=== PATIENT | female | born 1990 | race Caucasian/White ===

== ENCOUNTER 2018-03-18 21:27 | Inpatient (IN) | payer SELFPAY ==
[2018-03-18 22:02] LABS: #Basophils 0.1 thou/uL (0.0-0.2); #Eosinphils 0.4 thou/uL (0.0-0.7); #Lymphocytes 2.9 thou/uL (1.20-3.40); #Monocytes 1.4 thou/uL (0.11-0.59); %Basophils 0.6 % (0.0-1.0); %Eosinophils 2.3 % (0.0-10.0); %Lymphocytes 14.3 % (21.0-51.0); %Monocytes 7.1 % (0.0-10.0); %Neutrophils 75.7 % (42.0-75.0); Hemoglobin 13.5 g/dL (12.0-16.0); Mean Corpuscular HGB CONC 33.8 g/dL (32.0-36.0); Mean Corpuscular Hemoglobin 33.1 pg (27.0-31.0); Mean Platelet Volume 8.3 fL (7.4-10.4); Platelet Count 315 thou/uL (130-400); RBC Distribution Width 11.6 % (11.5-14.5); Red Blood Cell (RBC) Count 4.09 mill/uL (4.20-5.40); White Blood Cell (WBC) Count 19.8 thou/uL (4.8-10.8)
[2018-03-18 22:08] LABS: Bilirubin Small (Negative); Blood, Urine Negative (Negative); Clarity CLEAR (Clear); Glucose, Urine (Dipstick) Negative (Negative); Leukocyte Negative (Negative); Nitrite Negative (Negative); Protein, Urine (Dipstick) Trace mg/dL (Neg-Trace); Specific Gravity, Urine 1.021 (1.002-1.036)
[2018-03-18 22:17] LABS: BHCG - Serum Negative (NEGATIVE); Pregs Control Background? CLEAR/WHITE (CLR/WHITE); Pregs Control Bar Appear? YES (CONTROL BAR)
--- NOTE | 2018-03-18 22:18 | RAD ---
PORTABLE AP CHEST X-RAY 03/18/18 HISTORY: Combative, agitation, altered mental status. FINDINGS: Endotracheal tube is noted in place with tip overlying the irma. The endotracheal tube should be sl ightly withdrawn. Nasogastric tube is noted in place which is coiled overlying the left upper quadran t. Tip overlying the region of the gastric cardia/fundus of the stomach. The cardiac silhouette and p ulmonary vasculature are within normal limits. The lungs are clear. Osseous structures are intact. IMPRESSION: 1. Endotracheal tube noted in place with tip overlying the irma. The endotracheal tube should be slightly withdrawn. 2. Nasogastric tube in place. 3. No acute cardiopulmonary process. POS: [facility]
[2018-03-18 22:21] LABS: ALT (SGPT) 19 U/L (8-55); AST (SGOT) 27 U/L (5-34); Acetaminophen Less than 6.0 mcg/mL (10.0-30.0); Albumin 4.2 g/dL (3.5-5.0); Alcohol Less than 10 mg/dL (Less than 10); Alkaline Phosphatase 90 U/L (40-150); Anion Gap 16 mmol/L (10-20); BUN (Urea Nitrogen) 9 mg/dL (7.0-18.7); Bilirubin, Total 0.6 mg/dL (0.2-1.2); CK (CPK) 467 U/L (29-168); Calc. Creatinine Clearance 0 mL/min (70-130); Carbon Dioxide 18 mmol/L (22-29); Chloride 111 mmol/L (98-107); Estimated GFR-MDRD 77; Globulin 2.9 g/dL (2.4-3.5); Glucose 96 mg/dL (70-105); Potassium 3.3 mmol/L (3.5-5.1); Protein, Total 7.1 g/dL (6.0-8.3); Salicylate Less than 8.0 mg/dL (15.0-30.0); Sodium 142 mmol/L (136-145)
[2018-03-18 22:21] LABS: Amphetamine Detected (NotDetected); Barbiturates Screen Not Detected (NotDetected); Benzodiazepine Screen Detected (NotDetected); Cocaine Metabolite Screen Not Detected (NotDetected); Medtox Reader # READER 1; Methadone Not Detected (NotDetected); Methamphetamine Detected (NotDetected); Opiate Screen Not Detected (NotDetected); Oxycodone Screen Not Detected (NotDetected); Phencyclidine (PCP) Not Detected (NotDetected); THC/Cannabinoid Screen Not Detected (NotDetected); Tricyclic Screen Not Detected (NotDetected)
[2018-03-18 22:22] LABS: Medtox Control Line Valid? VALID (VALID)
[2018-03-18 22:24] LABS: Troponin I Less than 0.010 ng/mL (< 0.028)
[2018-03-18 22:43] LABS: Thyroid Stimulating Hormone 0.6879 uIU/mL (0.35-4.94)
--- NOTE | 2018-03-18 22:49 | CT ---
CT BRAIN NONCONTRAST: 03/18/18 HISTORY: 27-year-old female with altered mental status, combative and agitated. FINDINGS: There is no midline shift or any other mass effect. There is no evidence of acute intracranial hemor rhage, large cortical infarct, obstructive hydrocephalus, or extraaxial fluid collection. The calvar ium is intact. There is total opacification of the entire nasal cavity and nasopharyngeal airway. The re is a small fluid level in the right maxillary sinus and a tiny one in the left maxillary sinus. Mi ld mucosal thickening of bilateral ethmoid air cells and sphenoid sinuses. No gross opacification of bilateral tympanomastoid cavities and frontal sinuses. IMPRESSION: 1. No acute intracranial findings. 2. Fluid filling the nasal cavity and nasopharyngeal airway. william [] POS: JASON
[2018-03-18 22:55] LABS: Actual Bicarbonate (HCO3a) 18.6 mEq/L (22-28); Analyzer IN Cardio ER; Base Excess (BEa) -4.9 mEq/L (-2.0 to +3.0); CO2 Tension 29.7 mmHg (35.0-45.0); Calcium, Ionized 1.13 mmol/L (1.12-1.30); Carboxyhemoglobin (COHb) 0.3 gm% (0.0-3.0); Hemoglobin (Hb) 12.4 g/dL (12.0-16.0); O2 Tension (PaO2) 207.8 mmHg (80.0-100.0); Potassium - ABG Lab 3.26 mmol/L (3.70-5.30); pH, Arterial 7.41 (7.35-7.45)
--- NOTE | 2018-03-18 22:55 | CT ---
CT CERVICAL SPINE NONCONTRAST: 03/18/18 HISTORY: 27-year-old female status post acute cervical trauma from fall. FINDINGS: Alignment is normal. The vertebral body heights are maintained. Disc spaces are maintained. There is no evidence of acute fracture. There is no evidence of high grade central spinal canal stenosis or hi gh grade neuroforaminal stenosis. There are no high grade degenerative facet changes. There is no p revertebral soft tissue swelling. Endotracheal tube travels through the lumen of the trachea and into the right main stem bronchus. The distal tip is not visualized on the lowest image slice. There is an NG tube within the esophagus. Th ere are patchy pulmonary densities in the bilateral upper lobes, nonspecific. IMPRESSION: 1. Status post intubation, with endotracheal tube within the right main stem bronchus. 2. Normal cervical spine. william[] POS: JASON
[2018-03-18 23:04] LABS: ALV-art Gradient 111.575 (0-20); Puncture Site RRAD
[2018-03-18] MEDS ORDERED: Ondansetron HCl/PF 4 MG/2 ML Vial IVP PRN (23:37)
[2018-03-18] MEDS ORDERED: Acetaminophen 650 MG Suppository PR PRN (23:37)
[2018-03-19] MEDS ORDERED: Midazolam HCl 5 mg/ml Vial ONE ×2 (00:24→00:58)
[2018-03-19] MEDS ORDERED: Ventilator Sedation Protocol 1 EACH FS SCH (00:38)
[2018-03-19] MEDS ORDERED: DISCONTINUE PREVIOUS NARCOTIC PAIN MEDICATIONS AND BENZODIAZEPINES FS SCH (00:46)
[2018-03-19] MEDS ORDERED: Fentanyl BOLUS 250 ML IVPB PRN (00:46)
[2018-03-19] MEDS ORDERED: Propofol BOLUS 1,000 MG/100 ML VIAL IV PRN (00:46)
[2018-03-19] MEDS ORDERED: fentaNYL Citrate/PF 2,000 MCG in Sodium Chloride 0.9% 60 ML IV SCH (00:46)
[2018-03-19] MEDS ORDERED: Morphine 2 MG/ML SYRINGE SLOW IVP PRN (00:48)
[2018-03-19] MEDS ORDERED: Fentanyl 100 MCG/2 ML VIAL ONE (00:58)
[2018-03-19] MEDS: Sodium Chloride 0.9% 1,000 ML IV SCH ×4 (01:33→17:52)
[2018-03-19] MEDS: Lorazepam 2 MG/ML VIAL SLOW IVP PRN ×5 (01:33→20:47)
[2018-03-19] MEDS: Propofol 1,000 MG/100 ML VIAL IV PRN ×5 (01:33→20:48)
[2018-03-19 01:57] VITALS: BMI 32.7
[2018-03-19 05:37] LABS: #Basophils 0.1 thou/uL (0.0-0.2); #Eosinphils 0.4 thou/uL (0.0-0.7); #Lymphocytes 3.1 thou/uL (1.20-3.40); %Basophils 0.4 % (0.0-1.0); %Eosinophils 2.3 % (0.0-10.0); %Lymphocytes 19.7 % (21.0-51.0); %Monocytes 6.5 % (0.0-10.0); %Neutrophils 71.1 % (42.0-75.0); Hemoglobin 11.9 g/dL (12.0-16.0); Mean Corpuscular HGB CONC 33.7 g/dL (32.0-36.0); Mean Corpuscular Hemoglobin 33.1 pg (27.0-31.0); Mean Corpuscular Volume 98.3 fL (78.0-98.0); Mean Platelet Volume 8.7 fL (7.4-10.4); Platelet Count 275 thou/uL (130-400); RBC Distribution Width 11.9 % (11.5-14.5); Red Blood Cell (RBC) Count 3.59 mill/uL (4.20-5.40); White Blood Cell (WBC) Count 15.5 thou/uL (4.8-10.8)
[2018-03-19 06:04] LABS: Anion Gap 14 mmol/L (10-20); BUN (Urea Nitrogen) 9 mg/dL (7.0-18.7); Calc. Creatinine Clearance 197 mL/min (70-130); Calcium 8.6 mg/dL (7.8-10.44); Carbon Dioxide 15 mmol/L (22-29); Chloride 116 mmol/L (98-107); Estimated GFR-MDRD Greater than 90; Glucose 66 mg/dL (70-105); Potassium 3.2 mmol/L (3.5-5.1); Sodium 142 mmol/L (136-145)
[2018-03-19 07:08] LABS: Actual Bicarbonate (HCO3a) 16.1 mEq/L (22-28); Calcium, Ionized 1.17 mmol/L (1.12-1.30); Carboxyhemoglobin (COHb) 0.8 gm% (0.0-3.0); Hemoglobin (Hb) 12.7 g/dL (12.0-16.0); O2 Tension (PaO2) 169.4 mmHg (80.0-100.0); Potassium - ABG Lab 2.81 mmol/L (3.70-5.30); pH, Arterial 7.46 (7.35-7.45)
[2018-03-19 07:23] LABS: CO2 Tension 23.4 mmHg (35.0-45.0); Puncture Site RBA
[2018-03-19] MEDS: Enoxaparin Sodium 40 MG/0.4 ML SYRINGE SC SCH (09:07)
--- NOTE | 2018-03-19 11:58 | HP ---
PRIMARY CARE PHYSICIAN: None reported. CODE STATUS: FULL CODE. TIME OF EVALUATION: 11:00 p.m. CHIEF COMPLAINT: The patient was agitated. HISTORY OF PRESENT ILLNESS: This is 27-year-old female patient with no significant past medical hist ory reported. All information is gathered from records and the ER staff, patient is intubated and se dated. It seems the patient came to the hospital after being found with altered mental status, found on her lawn, acting restless and paranoid by the police, when they were responding to a disturbance complaint. According to the EMS, the patient was combative, agitated, noncompliant with the staff, p atient not cooperating with the medical treatment. For that reason, the patient was sedated, intubat ed, needing a significant amount of sedation given and severe psychomotor agitation. REVIEW OF SYSTEMS: Unable to obtain. PAST MEDICAL HISTORY: As per record, the patient has a history of ovarian cyst. PAST SURGICAL HISTORY: Unable to verify. The patient was intubated and sedated. PSYCHIATRIC HISTORY: The patient had a history of PTSD. SOCIAL HISTORY: Unable to obtain. The patient was intubated and sedated. ALLERGIES: EGG and TRAMADOL. REPORTED MEDICATIONS: Unable to obtain. PHYSICAL EXAMINATION: VITAL SIGNS: On presentation, blood pressure 156/93 with heart rate 105, respiratory rate was 26, ox ygen saturation was 100% on facemask. GENERAL APPEARANCE: The patient is intubated, sedated, initially presenting with severe psychomotor agitation. HEENT: Eyes, normal conjunctivae. Moist oral mucosa. Anicteric. NECK: No JVD. RESPIRATORY: Bilateral air entry. No rales, no wheezes, symmetric expansion. CARDIOVASCULAR: Normal rate, regular rhythm. No murmurs, no gallop. No edema. ABDOMEN: Soft, normal bowel sounds. MUSCULOSKELETAL: Baseline range of motion and strength. No tenderness. SKIN: Warm and intact. No pallor, no rash, no redness. Peripheral pulses are present. Capillary r efill seems to be intact. NEUROLOGIC: Unable to fully explore. No evidence of any new focal weakness as per history and physi fawn exam. PSYCHIATRIC: Unable to explore. IMAGING: Chest x-ray was reviewed. Endotracheal tip overlying the irma needs to be slightly withd rawn. Nasogastric tube in place. No acute cardiopulmonary process. Brain CT was done. The patient had no acute intracranial findings, fluid filled in the nasal cavity and nasopharyngeal airway. Cer vical spine CT was reviewed, the patient is status post intubation with endotracheal tube within the right main stem bronchus, normal cervical spine. LABORATORY DATA: Labs were reviewed. The patient has white count of 19.8 and down to 15, platelet c ount 315, hemoglobin 13.5. Blood gas on presentation, a pH of 7.4, pCO2 of 29, pO2 of 207, that was done on SIMV with mechanical rate 22, inspired oxygen 50, tidal volume 500, PEEP of 5. Chemistry: S odium 142, potassium 3.3, chloride 111, carbon dioxide 18, anion gap 16, BUN 9, creatinine 0.8, GFR 7 7, glucose 96, calcium 9, total bilirubin 0.6, AST 27, ALT 19, alkaline phosphatase 90. CK 467. Tro ponin less than 0.010. TSH was normal. Urine was negative for infection. Toxicology was done and w as positive for amphetamines, methamphetamines and benzodiazepines. ASSESSMENT AND PLAN: The patient will be placed in the hospital with the following medical problems: 1. Methamphetamines overdose, leading to psychomotor agitation, that was severe, the patient ended u p intubated with sedation. Once the patient more alert, the patient will need to be counseled about drug addiction. 2. Severe psychomotor agitation secondary to drug overdose, the patient has been sedated, monitored in the ICU. 3. Respiratory failure with inability to protect airways, the reason why the patient was intubated, we will call Pulmonary for assistance with vent management and extubation once patient improves. 4. Leukocytosis of 19, came down to 15. No evidence of infection at this point. No bandemia, we wi ll monitor, no need for any acute intervention at this point. 5. Deep venous thrombosis prophylaxis.
--- NOTE | 2018-03-19 13:52 | PDOC.PN ---
- Subjective Encounter Start Date: 03/19/18 Encounter Start Time: 09:30 -: old records requested/rev Patient seen and examined. pt is on ventilator, sedated. No overnight events - Objective Resuscitation Status: Resuscitation Status FULL:Full Resuscitation MAR Reviewed: Yes Vital Signs & Weight: Vital Signs (12 hours) Temp Pulse Resp BP Pulse Ox 03/19/18 12:00 97.7 F 12 03/19/18 11:01 71 112/70 03/19/18 10:00 12 03/19/18 08:00 97.8 F 12 100 03/19/18 06:38 62 109/77 03/19/18 06:00 22 H 03/19/18 04:00 22 H 03/19/18 03:00 97.8 F 03/19/18 02:49 65 114/78 03/19/18 02:00 22 H 100 Weight Weight 215 lb 6.266 oz Most Recent Monitor Data Heart Rate from ECG 66 NIBP 99/62 NIBP BP-Mean 74 Respiration from ECG 12 SpO2 100 I&O: 03/18/18 03/19/18 03/20/18 06:59 06:59 06:59 Intake Total 841 Output Total 410 208 Balance 431 -208 Result Diagrams: 03/19/18 05:02 03/19/18 05:02 Radiology Reviewed by me: Yes EKG Reviewed by me: Yes Phys Exam - Physical Examination Constitutional: NAD on vent HEENT: PERRLA, sclera anicteric Neck: no JVD, supple Respiratory: no wheezing, no rales, no rhonchi Cardiovascular: RRR, no significant murmur, no rub Gastrointestinal: soft, no distention, positive bowel sounds Musculoskeletal: no edema, pulses present unable to assess Lymphatic: no nodes Deviation from normal: unable to assess Skin: no rash, normal turgor Dx/Plan (1) Acute respiratory failure with hypoxia Code(s): J96.01 - ACUTE RESPIRATORY FAILURE WITH HYPOXIA Status: Acute (2) Hypokalemia Code(s): E87.6 - HYPOKALEMIA Status: Acute (3) Leucocytosis Code(s): D72.829 - ELEVATED WHITE BLOOD CELL COUNT, UNSPECIFIED Status: Acute (4) Polysubstance abuse Code(s): F19.10 - OTHER PSYCHOACTIVE SUBSTANCE ABUSE, UNCOMPLICATED Status: Acute (5) Rhabdomyolysis Code(s): M62.82 - RHABDOMYOLYSIS Status: Acute (6) Toxic metabolic encephalopathy Code(s): G92 - TOXIC ENCEPHALOPATHY Status: Acute (7) Obesity (BMI 30.0-34.9) Code(s): E66.9 - OBESITY, UNSPECIFIED Status: Chronic - Plan cont current plan of care * continue IVF * medication reviewed as below * symptomatic treatment as below * ventilator as per pulmonary. * replace potassium Review of Systems - Review of Systems Other: unable to review due to intubated status - Medications/Allergies Allergies/Adverse Reactions: Allergies Allergy/AdvReac Type Severity Reaction Status Date / Time No Known Allergies Allergy Verified 03/07/13 16:05 Medications: Current Medications Acetaminophen (Tylenol) 650 mg VA Q4H PRN PRN Reason: Headache/Fever or Pain Enoxaparin Sodium (Lovenox) 40 mg SC 0900 [facility] Last Admin: 03/19/18 09:07 Dose: 40 mg Sodium Chloride (Normal Saline 0.9%) 1,000 mls @ 150 mls/hr IV .Q6H40M [facility]ILL[facility] Last Admin: 03/19/18 05:58 Dose: 1,000 mls Fentanyl Citrate 2,000 mcg/ (Sodium Chloride) 100 mls @ 0 mls/hr IV INF LILLY; Protocol Stop: 04/18/18 00:46 Fentanyl Citrate (Fentanyl Bolus) 250 mls @ 0 mls/hr IVPB PRN PRN PRN Reason: Breakthrough pain/agitation Stop: 04/18/18 00:46 Lorazepam (Ativan) 2 mg SLOW IVP Q1H PRN PRN Reason: Breakthrough agitation Stop: 04/18/18 00:46 Last Admin: 03/19/18 09:07 Dose: 2 mg Morphine Sulfate (Morphine) 2 mg SLOW IVP Q1H PRN PRN Reason: BREAKTHROUGH PAIN/AGITATION Discontinue Previous Narcotic Pain Medications And Benzodiazepines 1 each FS .ONE LILLY Stop: 04/18/18 00:46 Ondansetron HCl (Zofran) 4 mg IVP Q6H PRN PRN Reason: Nausea/Vomiting Propofol (Diprivan) 1,000 mg IV INF PRN; Protocol PRN Reason: TO ACHIEVE GOAL RASS Stop: 04/18/18 00:46 Last Admin: 03/19/18 09:13 Dose: 1,000 mg Propofol (Diprivan Bolus) 20 mg IV Q5MIN PRN PRN Reason: BREAKTHROUGH AGITATION Stop: 04/18/18 00:46
[2018-03-19] MEDS ORDERED: hydrALAZINE 20 MG/ML VIAL SLOW IVP PRN (13:53)
[2018-03-19] MEDS ORDERED: Eucerin (Mineral Oil/Petrolatum,White) 30 gm Jar TOP PRN (13:53)
[2018-03-19] MEDS ORDERED: Bisacodyl 10 MG SUPP PR PRN (13:53)
[2018-03-19] MEDS ORDERED: Artificial Tears 18 DROP/0.9 ML EA EYE PRN (13:53)
[2018-03-19] MEDS ORDERED: Potassium Chloride 40 MEQ in Premix Bag 1 BAG IVPB SCH (14:00)
[2018-03-19] MEDS ORDERED: Potassium Chloride 40 MEQ in Sodium Chloride 0.9% 250 ML 250 ML IVPB SCH (15:00)
[2018-03-19] MEDS: Haloperidol Lactate 5 MG/ML VIAL IM SCH ×2 (18:57→22:55)
[2018-03-19] MEDS: Famotidine/PF 20 mg/2ml Vial SLOW IVP SCH (20:47)
--- NOTE | 2018-03-19 21:48 | CON ---
DATE OF CONSULTATION: 03/19/2018 HISTORY OF PRESENT ILLNESS: Ms. Thompson is a 27-year-old female who apparently presented with alter ed mental status via called to the police. She would not cooperate with EMS, apparently she was enrique jason and intubated. She is mechanically ventilated in 4-point restraints when I saw her, unable to give a history. She h as multiple visits to the emergency department, going back to 2011 with complaints of shoulder pain, lumbar strain ejection from horse, abdominal pain, vomiting, wrist pain, ear pain, flank pain, back p ain, PTSD attacks, and anxiety. FAMILY HISTORY: Unknown. SOCIAL HISTORY: Unknown. PHYSICAL EXAMINATION: GENERAL: She is sedated for mechanical ventilation. HEENT: Pupils react. She is afebrile, respiratory rate is 12. Blood pressure 109/64, heart rate 71 . She is in sinus rhythm. NECK: Supple. LUNGS: Clear. HEART: Regular rate and rhythm, no S3. ABDOMEN: Soft and nontender. EXTREMITIES: Without asymmetry. LABORATORY DATA: White count 15.5, hemoglobin 11.9, platelets 275,000. Sodium 142, potassium 116, c hloride 15, BUN 9, creatinine 0.6. pH 7.46, pCO2 of 23, pO2 of 169. IMPRESSION: Respiratory failure because of multiple drug overdose mixed with ? psychotic behavior. She had amphetamines, methamphetamines, and benzodiazepines on her drug screen. She actually had the same drug screen with the addition of opiates in 09/2016. We will keep her sedated until all of these drugs were off, started her on Haldol. Hopefully, she wi ll be cooperative. In the morning if she is not, then place her on a Precedex drip may be the next s tep in trying to wean her from mechanical ventilation. All radiographs have been reviewed. Critical care time was 30 minutes.
[2018-03-20] MEDS: Propofol 1,000 MG/100 ML VIAL IV PRN ×2 (00:20→04:08)
[2018-03-20] MEDS: Sodium Chloride 0.9% 1,000 ML IV SCH (00:20)
[2018-03-20] MEDS: Lorazepam 2 MG/ML VIAL SLOW IVP PRN (00:21)
[2018-03-20] MEDS: Haloperidol Lactate 5 MG/ML VIAL IM SCH ×4 (02:07→20:15)
[2018-03-20 06:22] LABS: #Basophils 0.1 thou/uL (0.0-0.2); #Eosinphils 0.7 thou/uL (0.0-0.7); #Lymphocytes 2.2 thou/uL (1.20-3.40); #Monocytes 0.7 thou/uL (0.11-0.59); #Neutrophils 9.9 thou/uL (1.40-6.50); %Basophils 0.5 % (0.0-1.0); %Eosinophils 4.8 % (0.0-10.0); %Lymphocytes 16.2 % (21.0-51.0); %Monocytes 5.4 % (0.0-10.0); %Neutrophils 73.1 % (42.0-75.0); Hemoglobin 11.2 g/dL (12.0-16.0); Mean Corpuscular HGB CONC 32.7 g/dL (32.0-36.0); Mean Corpuscular Hemoglobin 32.6 pg (27.0-31.0); Mean Corpuscular Volume 99.6 fL (78.0-98.0); Mean Platelet Volume 8.4 fL (7.4-10.4); Platelet Count 279 thou/uL (130-400); RBC Distribution Width 12.1 % (11.5-14.5); Red Blood Cell (RBC) Count 3.45 mill/uL (4.20-5.40); White Blood Cell (WBC) Count 13.5 thou/uL (4.8-10.8)
[2018-03-20 06:36] LABS: Anion Gap 10 mmol/L (10-20); BUN (Urea Nitrogen) 6 mg/dL (7.0-18.7); Calc. Creatinine Clearance 207 mL/min (70-130); Calcium 8.1 mg/dL (7.8-10.44); Carbon Dioxide 19 mmol/L (22-29); Chloride 118 mmol/L (98-107); Estimated GFR-MDRD Greater than 90; Sodium 144 mmol/L (136-145)
[2018-03-20 06:41] LABS: Glucose 55 mg/dL (70-105)
[2018-03-20] MEDS ORDERED: Dextrose 50% Abboject 50 ML SYRINGE ONE (06:42)
[2018-03-20] MEDS ORDERED: Potassium Chloride 40 MEQ in Sodium Chloride 0.9% 250 ML 250 ML IVPB PRN (07:17)
[2018-03-20] MEDS ORDERED: CCU ELECTROLYTE REPLACEMENT PROTOCOL FS PRN (07:17)
[2018-03-20] MEDS ORDERED: Potassium Phosphate 12 MMOL in Sodium Chloride 0.9% 250 ML 250 ML IV PRN (07:17)
[2018-03-20] MEDS ORDERED: Magnesium 2 GM/NS 0.9% 100 ML 2 GM in Premix Bag 1 BAG IVPB PRN (07:17)
[2018-03-20] MEDS ORDERED: Potassium Chloride 20 MEQ TAB PO PRN (07:17)
[2018-03-20] MEDS ORDERED: Magnesium Oxide 400 MG TAB PO PRN ×2 (07:17)
[2018-03-20] MEDS ORDERED: Potassium Chloride 40 MEQ in Premix Bag 1 BAG IVPB PRN (07:17)
[2018-03-20] MEDS ORDERED: Potassium Phosphate 15 MMOL in Sodium Chloride 0.9% 250 ML 250 ML IV PRN (07:17)
[2018-03-20] MEDS ORDERED: Potassium Phosphate 9 MMOL in Sodium Chloride 0.9% 100 ML IVPB PRN (07:17)
[2018-03-20] MEDS: Dextrose 5 % And 0.9 % NaCl 1,000 ML IV SCH ×3 (07:47→20:15)
[2018-03-20 07:53] LABS: Actual Bicarbonate (HCO3a) 16.8 mEq/L (22-28); Base Excess (BEa) -8.2 mEq/L (-2.0 to +3.0); CO2 Tension 33.1 mmHg (35.0-45.0); Calcium, Ionized 1.16 mmol/L (1.12-1.30); Carboxyhemoglobin (COHb) 0.8 gm% (0.0-3.0); Hemoglobin (Hb) 12.3 g/dL (12.0-16.0); O2 Tension (PaO2) 102.2 mmHg (80.0-100.0); Potassium - ABG Lab 2.77 mmol/L (3.70-5.30); pH, Arterial 7.32 (7.35-7.45)
[2018-03-20 08:11] LABS: ALV-art Gradient 70.325 (0-20); Puncture Site RBA
[2018-03-20] MEDS ORDERED: Propofol 1,000 MG/100 ML VIAL IV PRN (08:40)
[2018-03-20] MEDS ORDERED: Propofol 1,000 MG/100 ML VIAL IV ONE (08:41)
[2018-03-20] MEDS: Famotidine/PF 20 mg/2ml Vial SLOW IVP SCH ×2 (09:53→20:15)
[2018-03-20] MEDS: Enoxaparin Sodium 40 MG/0.4 ML SYRINGE SC SCH (09:53)
--- NOTE | 2018-03-20 10:38 | PDOC.PN ---
- Subjective Encounter Start Date: 03/20/18 Encounter Start Time: 09:20 Patient seen and examined. pt is intubated and sedated, No overnight events - Objective Resuscitation Status: Resuscitation Status FULL:Full Resuscitation MAR Reviewed: Yes Vital Signs & Weight: Vital Signs (12 hours) Temp Pulse Resp BP Pulse Ox 03/20/18 08:00 12 100 03/20/18 07:27 75 129/78 03/20/18 07:00 99.7 F H 03/20/18 06:00 14 03/20/18 04:00 13 03/20/18 03:33 62 03/20/18 03:00 99.2 F 03/20/18 02:00 15 03/20/18 00:00 98.9 F 12 03/19/18 23:34 76 110/61 Weight Admit Weight 215 lb Weight 215 lb 6.266 oz Most Recent Monitor Data Heart Rate from ECG 72 NIBP 111/69 NIBP BP-Mean 83 Respiration from ECG 14 SpO2 100 I&O: 03/19/18 03/20/18 03/21/18 06:59 06:59 06:59 Intake Total 841 4742 Output Total 410 908 345 Balance 431 3834 -345 Result Diagrams: 03/20/18 06:05 03/20/18 05:57 EKG Reviewed by me: Yes (nsr) Phys Exam - Physical Examination Constitutional: NAD intubated HEENT: PERRLA, sclera anicteric Neck: no JVD, supple Respiratory: no wheezing, no rales, no rhonchi Cardiovascular: RRR, no significant murmur, no rub Gastrointestinal: soft, no distention, positive bowel sounds Musculoskeletal: no edema, pulses present unable to assess Lymphatic: no nodes Deviation from normal: unable to assess Skin: no rash, normal turgor Dx/Plan (1) Acute respiratory failure with hypoxia Code(s): J96.01 - ACUTE RESPIRATORY FAILURE WITH HYPOXIA Status: Acute (2) Hypokalemia Code(s): E87.6 - HYPOKALEMIA Status: Acute (3) Leucocytosis Code(s): D72.829 - ELEVATED WHITE BLOOD CELL COUNT, UNSPECIFIED Status: Acute (4) Polysubstance abuse Code(s): F19.10 - OTHER PSYCHOACTIVE SUBSTANCE ABUSE, UNCOMPLICATED Status: Acute (5) Rhabdomyolysis Code(s): M62.82 - RHABDOMYOLYSIS Status: Acute (6) Toxic metabolic encephalopathy Code(s): G92 - TOXIC ENCEPHALOPATHY Status: Acute (7) Obesity (BMI 30.0-34.9) Code(s): E66.9 - OBESITY, UNSPECIFIED Status: Chronic (8) Hypoglycemia Code(s): E16.2 - HYPOGLYCEMIA, UNSPECIFIED Status: Acute - Plan cont current plan of care * ventilator as per pulmonary * medication reviewed as below * symptomatic treatment * will need [facility] evaluation when medically stable before discharge. * change IVF to dex with NS * replace potassium Review of Systems - Review of Systems Other: unable to review due to intubated status - Medications/Allergies Allergies/Adverse Reactions: Allergies Allergy/AdvReac Type Severity Reaction Status Date / Time No Known Allergies Allergy Verified 03/07/13 16:05 Medications: Current Medications Acetaminophen (Tylenol) 650 mg OK Q4H PRN PRN Reason: Headache/Fever or Pain Artificial Tears (Tears Naturale) 0 drop EA EYE PRN PRN PRN Reason: Dry Eyes Bisacodyl (Dulcolax) 10 mg OK DAILYPRN PRN PRN Reason: Constipation Enoxaparin Sodium (Lovenox) 40 mg SC 0900 [facility] Last Admin: 03/19/18 09:07 Dose: 40 mg Famotidine (Pepcid) 20 mg SLOW IVP Q12HR [facility] Last Admin: 03/19/18 20:47 Dose: 20 mg Haloperidol Lactate (Haldol) 10 mg IM Q4H [facility] Last Admin: 03/20/18 05:30 Dose: 10 mg Hydralazine HCl (Apresoline) 10 mg SLOW IVP Q4H PRN PRN Reason: Systolic BP > 180 Fentanyl Citrate 2,000 mcg/ (Sodium Chloride) 100 mls @ 0 mls/hr IV INF LILLY; Protocol Stop: 04/18/18 00:46 Fentanyl Citrate (Fentanyl Bolus) 250 mls @ 0 mls/hr IVPB PRN PRN PRN Reason: Breakthrough pain/agitation Stop: 04/18/18 00:46 Potassium Chloride 40 meq/ (Sodium Chloride) 270 mls @ 135 mls/hr IVPB ASDIR PRN PRN Reason: FOR SERUM K+ 2.5 - 3.5 Last Admin: 03/20/18 07:46 Dose: 270 mls Potassium Chloride 40 meq/ (Device) 100 mls @ 50 mls/hr IVPB ASDIR PRN PRN Reason: FOR SERUM K+ 2.5 - 3.5 Magnesium Sulfate 1 gm/ Sodium (Chloride) 102 mls @ 102 mls/hr IV PRN PRN PRN Reason: MAG LEVEL 1.4 - 2.0 Magnesium Sulfate 2 gm/ Device 100 mls @ 100 mls/hr IVPB ASDIR PRN PRN Reason: MAGNESIUM < 1.4 Potassium Phosphate 9 mmol/ (Sodium Chloride) 103 mls @ 25.75 mls/hr IVPB ASDIR PRN PRN Reason: Phosphate 1.0-1.8 Potassium Phosphate 12 mmol/ (Sodium Chloride) 254 mls @ 63.5 mls/hr IV ASDIR PRN PRN Reason: Serum phosphate 0.5-0.9 Potassium Phosphate 15 mmol/ (Sodium Chloride) 255 mls @ 63.75 mls/hr IV ASDIR PRN PRN Reason: Serum Phos < 0.5 Dextrose/Sodium Chloride (D5 0.9% Ns) 1,000 mls @ 150 mls/hr IV .Q6H40M [facility] Last Admin: 03/20/18 07:47 Dose: 1,000 mls Lorazepam (Ativan) 2 mg SLOW IVP Q1H PRN PRN Reason: Breakthrough agitation Stop: 04/18/18 00:46 Last Admin: 03/20/18 00:21 Dose: 2 mg Magnesium Oxide (Magnesium Oxide) 400 mg PO BIDPRN PRN PRN Reason: FOR SERUM MAG 1.4 - 2.0 Magnesium Oxide (Magnesium Oxide) 800 mg PO PRN PRN PRN Reason: FOR SERUM MAG < 1.4 Mineral Oil/White Petrolatum (Eucerin Cream) 0 gm TOP BIDPRN PRN PRN Reason: Dry Skin Miscellaneous Medication (Phos-Nak) 1 pkt PO TIDPRN PRN PRN Reason: FOR PHOS LEVEL 1.0 - 1.8 Miscellaneous Medication (Phos-Nak) 2 pkt PO TIDPRN PRN PRN Reason: FOR PHOS LEVEL 0.5 - 1.0 Morphine Sulfate (Morphine) 2 mg SLOW IVP Q1H PRN PRN Reason: BREAKTHROUGH PAIN/AGITATION Discontinue Previous Narcotic Pain Medications And Benzodiazepines 1 each FS .ONE [facility] Stop: 04/18/18 00:46 Ccu Electrolyte (Replacement Protocol) 0 each FS PRN PRN PRN Reason: FOR ELECTROLYTE REPLACEMENT Ondansetron HCl (Zofran) 4 mg IVP Q6H PRN PRN Reason: Nausea/Vomiting Potassium Chloride (K-Dur) 40 meq PO ASDIR PRN PRN Reason: FOR SERUM K+ 2.5 - 3.5 Potassium Chloride (Klor-Con) 40 meq PER TUBE ASDIR PRN PRN Reason: FOR SERUM K+ 2.5-3.5 Propofol (Diprivan Bolus) 20 mg IV Q5MIN PRN PRN Reason: BREAKTHROUGH AGITATION Stop: 04/18/18 00:46 Propofol (Diprivan) 1,000 mg IV INF PRN; Protocol PRN Reason: TO ACHIEVE GOAL RASS Last Admin: 03/20/18 08:42 Dose: 1,000 mg Sodium Chloride (Flush - Normal Saline) 10 ml IVF Q12HR LILLY Sodium Chloride (Flush - Normal Saline) 10 ml IVF PRN PRN PRN Reason: Saline Flush
[2018-03-20] MEDS: Dextrose 5% in Water 1,000 ML IV SCH (22:40)
--- NOTE | 2018-03-20 23:28 | PRG ---
DATE OF SERVICE: 03/20/2018 SUBJECTIVE: Johanna Thompson surprisingly awakened this morning and was cooperative. OBJECTIVE: VITAL SIGNS: She is afebrile, heart rate was in the 80s, respiratory rates in the teens. Minute vol ume was 7-8 liters a minute. LUNGS: Clear. HEART: Regular rhythm. ABDOMEN: Soft and nontender. EXTREMITIES: Without clubbing, cyanosis, or edema. NEUROLOGIC: Nonfocal. LABORATORY DATA: White count 11.5, hemoglobin 11.2, platelets 279. Sodium 144, potassium 3, chlorid e 118, bicarb 19, BUN 6, creatinine 0.63. PH 7.32, CO2 of 33, pO2 of 102. IMPRESSION: 1. Respiratory failure secondary to substance abuse. 2. Depression. Her father showed up and said that she has been talking about suicide recently. He is unclear whether she took something in addition to the street drugs she was using. Clinical histor y certainly just consistent with a large methamphetamine ingestion. 3. Hyperchloremic acidosis. When she is extubated, she can start drinking water and this should gra dually correct itself. She does not need to continue with the D5 normal saline at 150 mL an hour. I will continue with Haldol every 12 hours for now and reassess her tomorrow. Her sedation, propofol , has been discontinued. She is successfully extubated today and has done well post-extubation. She will need an [facility] evaluation within 24-48 hours of her extubation. Critical care time, 30 minutes.
[2018-03-21 08:47] LABS: Potassium 2.8 mmol/L (3.5-5.1)
[2018-03-21] MEDS: Famotidine/PF 20 mg/2ml Vial SLOW IVP SCH (08:56)
[2018-03-21] MEDS: Enoxaparin Sodium 40 MG/0.4 ML SYRINGE SC SCH (08:56)
[2018-03-21] MEDS: Haloperidol Lactate 5 MG/ML VIAL IM SCH ×2 (08:56→21:02)
[2018-03-21] MEDS ORDERED: Sodium Chloride 0.65% Nasal 44 ML BOT EA NARE PRN (10:31)
[2018-03-21] MEDS ORDERED: Milk Of Magnesia 30 ML UDCUP PO PRN (10:31)
[2018-03-21] MEDS ORDERED: Zolpidem Tartrate 5 MG TAB PO PRN (10:31)
[2018-03-21] MEDS ORDERED: Loperamide HCl 2 MG CAP PO PRN (10:31)
[2018-03-21] MEDS ORDERED: HYDROcodone/Acetaminophen 5/325 mg Tablet PO PRN (10:31)
[2018-03-21] MEDS ORDERED: Ondansetron ODT 4 MG TAB PO PRN (10:31)
[2018-03-21] MEDS ORDERED: Mag-Al 1200 mg/1200 mg/30 ML UDCUP PO PRN (10:31)
[2018-03-21] MEDS ORDERED: Senokot 8.6 MG TAB PO PRN (10:31)
[2018-03-21] MEDS ORDERED: Chloraseptic Spray 180 ml Bottle PO PRN (10:31)
[2018-03-21] MEDS ORDERED: Acetaminophen 325 MG TAB PO PRN (10:31)
--- NOTE | 2018-03-21 10:34 | PDOC.PN ---
- Subjective Encounter Start Date: 03/21/18 Encounter Start Time: 09:30 pt is extubated, she is doing well, no new problem Patient seen and examined. No new complaints. No overnight events - Objective Resuscitation Status: Resuscitation Status FULL:Full Resuscitation MAR Reviewed: Yes Vital Signs & Weight: Vital Signs (12 hours) Temp Pulse Ox 03/21/18 07:46 98.7 F 03/21/18 07:44 99 03/21/18 04:00 99.3 F 03/21/18 00:00 99.7 F H Weight Admit Weight 215 lb Weight 215 lb 6.266 oz Most Recent Monitor Data Heart Rate from ECG 92 NIBP 125/83 NIBP BP-Mean 97 Respiration from ECG 17 SpO2 100 I&O: 03/20/18 03/21/18 03/22/18 06:59 06:59 06:59 Intake Total 4742 4413 120 Output Total 908 4755 150 Balance 3834 -342 -30 Result Diagrams: 03/20/18 06:05 03/21/18 08:16 Additional Labs: Accuchecks 03/20/18 14:22 POC Glucose 81 EKG Reviewed by me: Yes (nsr) Phys Exam - Physical Examination Constitutional: NAD HEENT: PERRLA, moist MMs, sclera anicteric Neck: no JVD, supple Respiratory: no wheezing, no rales, no rhonchi Cardiovascular: RRR, no significant murmur, no rub Gastrointestinal: soft, non-tender, no distention, positive bowel sounds Musculoskeletal: no edema, pulses present Neurological: non-focal, normal sensation, moves all 4 limbs Psychiatric: normal affect, A&O x 3 Skin: no rash, normal turgor Dx/Plan (1) Acute respiratory failure with hypoxia Code(s): J96.01 - ACUTE RESPIRATORY FAILURE WITH HYPOXIA Status: Resolved (2) Hypokalemia Code(s): E87.6 - HYPOKALEMIA Status: Acute (3) Leucocytosis Code(s): D72.829 - ELEVATED WHITE BLOOD CELL COUNT, UNSPECIFIED Status: Acute (4) Polysubstance abuse Code(s): F19.10 - OTHER PSYCHOACTIVE SUBSTANCE ABUSE, UNCOMPLICATED Status: Acute (5) Rhabdomyolysis Code(s): M62.82 - RHABDOMYOLYSIS Status: Acute (6) Toxic metabolic encephalopathy Code(s): G92 - TOXIC ENCEPHALOPATHY Status: Acute (7) Obesity (BMI 30.0-34.9) Code(s): E66.9 - OBESITY, UNSPECIFIED Status: Chronic - Plan cont current plan of care * replace potassium * transfer to medical * medication reviewed as below * symptomatic treatment * will need MHMR before discharge. Review of Systems - Review of Systems ENT: negative: Ear Pain, Ear Discharge, Nose Pain, Nose Discharge, Nose Congestion, Mouth Pain, Mouth Swelling, Throat Pain, Throat Swelling, Other Respiratory: negative: Cough, Dry, Shortness of Breath, Hemoptysis, SOB with Excertion, Pleuritic Pain, Sputum, Wheezing Cardiovascular: negative: chest pain, palpitations, orthopnea, paroxysmal nocturnal dyspnea, edema, light headedness, other Gastrointestinal: negative: Nausea, Vomiting, Abdominal Pain, Diarrhea, Constipation, Melena, Hematochezia, Other Genitourinary: negative: Dysuria, Frequency, Incontinence, Hematuria, Retention , Other Musculoskeletal: negative: Neck Pain, Shoulder Pain, Arm Pain, Back Pain, Hand Pain, Leg Pain, Foot Pain, Other - Medications/Allergies Allergies/Adverse Reactions: Allergies Allergy/AdvReac Type Severity Reaction Status Date / Time No Known Allergies Allergy Verified 03/07/13 16:05 Medications: Current Medications Acetaminophen (Tylenol) 650 mg ND Q4H PRN PRN Reason: Headache/Fever or Pain Acetaminophen (Tylenol) 650 mg PO Q4H PRN PRN Reason: Headache/Fever or Mild Pain Hydrocodone Bitart/Acetaminophen ([place] 5/325) 1 tab PO Q4H PRN PRN Reason: Moderate Pain (4-6) Al Hydroxide/Mg Hydroxide (Maalox) 15 ml PO Q4H PRN PRN Reason: Heartburn or Indigestion Artificial Tears (Tears Naturale) 0 drop EA EYE PRN PRN PRN Reason: Dry Eyes Bisacodyl (Dulcolax) 10 mg [place] DAILYPRN PRN PRN Reason: Constipation Enoxaparin Sodium (Lovenox) 40 mg SC 0900 [facility] Last Admin: 03/21/18 08:56 Dose: 40 mg Famotidine (Pepcid) 20 mg PO BID [facility] Guaifenesin (Robitussin Sf) 200 mg PO Q4H PRN PRN Reason: Cough Haloperidol Lactate (Haldol) 10 mg IM Q12HR [facility] Last Admin: 03/21/18 08:56 Dose: 10 mg Hydralazine HCl (Apresoline) 10 mg SLOW IVP Q4H PRN PRN Reason: Systolic BP > 180 Potassium Chloride 40 meq/ (Sodium Chloride) 270 mls @ 135 mls/hr IVPB ASDIR PRN PRN Reason: FOR SERUM K+ 2.5 - 3.5 Last Admin: 03/20/18 07:46 Dose: 270 mls Potassium Chloride 40 meq/ (Device) 100 mls @ 50 mls/hr IVPB ASDIR PRN PRN Reason: FOR SERUM K+ 2.5 - 3.5 Magnesium Sulfate 1 gm/ Sodium (Chloride) 102 mls @ 102 mls/hr IV PRN PRN PRN Reason: MAG LEVEL 1.4 - 2.0 Magnesium Sulfate 2 gm/ Device 100 mls @ 100 mls/hr IVPB ASDIR PRN PRN Reason: MAGNESIUM < 1.4 Potassium Phosphate 9 mmol/ (Sodium Chloride) 103 mls @ 25.75 mls/hr IVPB ASDIR PRN PRN Reason: Phosphate 1.0-1.8 Potassium Phosphate 12 mmol/ (Sodium Chloride) 254 mls @ 63.5 mls/hr IV ASDIR PRN PRN Reason: Serum phosphate 0.5-0.9 Potassium Phosphate 15 mmol/ (Sodium Chloride) 255 mls @ 63.75 mls/hr IV ASDIR PRN PRN Reason: Serum Phos < 0.5 Dextrose/Water (D5w) 1,000 mls @ 75 mls/hr IV .[id number] [facility] Last Admin: 03/20/18 22:40 Dose: 1,000 mls Loperamide HCl (Imodium) 2 mg PO PRN PRN PRN Reason: Diarrhea/Loose Stools Loratadine (Claritin) 10 mg PO DAILYPRN PRN PRN Reason: Sinus Symptoms Lorazepam (Ativan) 1 mg PO Q4H PRN PRN Reason: Anxiety/Agitation Magnesium Hydroxide (Milk Of Magnesium) 30 ml PO DAILYPRN PRN PRN Reason: Constipation Magnesium Oxide (Magnesium Oxide) 400 mg PO BIDPRN PRN PRN Reason: FOR SERUM MAG 1.4 - 2.0 Magnesium Oxide (Magnesium Oxide) 800 mg PO PRN PRN PRN Reason: FOR SERUM MAG < 1.4 Mineral Oil/White Petrolatum (Eucerin Cream) 0 gm TOP BIDPRN PRN PRN Reason: Dry Skin Miscellaneous Medication (Phos-Nak) 1 pkt PO TIDPRN PRN PRN Reason: FOR PHOS LEVEL 1.0 - 1.8 Miscellaneous Medication (Phos-Nak) 2 pkt PO TIDPRN PRN PRN Reason: FOR PHOS LEVEL 0.5 - 1.0 Morphine Sulfate (Morphine) 2 mg SLOW IVP Q1H PRN PRN Reason: BREAKTHROUGH PAIN/AGITATION Discontinue Previous Narcotic Pain Medications And Benzodiazepines 1 each FS .ONE [facility] Stop: 04/18/18 00:46 Ccu Electrolyte (Replacement Protocol) 0 each FS PRN PRN PRN Reason: FOR ELECTROLYTE REPLACEMENT Ondansetron HCl (Zofran) 4 mg IVP Q6H PRN PRN Reason: Nausea/Vomiting Ondansetron HCl (Zofran Odt) 4 mg PO Q6H PRN PRN Reason: Nausea/Vomiting Phenol (Chloraseptic [place] 180 Ml Bot) 0 ml PO PRN PRN PRN Reason: Sore Throat Potassium Chloride (K-Dur) 40 meq PO ASDIR PRN PRN Reason: FOR SERUM K+ 2.5 - 3.5 Last Admin: 03/21/18 08:57 Dose: 40 meq Potassium Chloride (Klor-Con) 40 meq PER TUBE ASDIR PRN PRN Reason: FOR SERUM K+ 2.5-3.5 Senna (Senokot) 2 tab PO HSPRN PRN PRN Reason: Constipation Sodium Chloride (Flush - Normal Saline) 10 ml IVF Q12HR [facility] Last Admin: 03/21/18 08:57 Dose: 10 ml Sodium Chloride (Flush - Normal Saline) 10 ml IVF PRN PRN PRN Reason: Saline Flush Sodium Chloride ([place] Nasal [place] 0.65%) 0 ml EA NARE QIDPRN PRN PRN Reason: Nasal Congestion Zolpidem Tartrate (Ambien) 5 mg PO HSPRN PRN PRN Reason: Insomnia
[2018-03-21] MEDS: Dextrose 5% in Water 1,000 ML IV SCH (11:20)
--- NOTE | 2018-03-21 19:14 | PRG ---
DATE OF SERVICE: 03/20/2018 SUBJECTIVE: Donna is in no distress. She denies being suicidal. PHYSICAL EXAMINATION: VITAL SIGNS: Stable. LUNGS: Clear. HEART: Regular rhythm. ABDOMEN: Soft. She is stable to move out of the Critical Care Unit with a sitter. [facility] needs to be consulted to lupe luate her.
[2018-03-21] MEDS: Famotidine 20 MG TAB PO SCH (21:03)
[2018-03-22] MEDS: Dextrose 5% in Water 1,000 ML IV SCH ×2 (04:15→15:28)
[2018-03-22] MEDS: Lorazepam 1 MG TAB PO PRN ×2 (05:29→17:12)
[2018-03-22 09:00] LABS: #Eosinphils 0.3 thou/uL (0.0-0.7); #Lymphocytes 1.9 thou/uL (1.20-3.40); #Monocytes 0.9 thou/uL (0.11-0.59); #Neutrophils 10.6 thou/uL (1.40-6.50); %Basophils 0.4 % (0.0-1.0); %Eosinophils 2.2 % (0.0-10.0); %Monocytes 6.5 % (0.0-10.0); Mean Corpuscular HGB CONC 32.6 g/dL (32.0-36.0); Mean Corpuscular Volume 97.9 fL (78.0-98.0); Mean Platelet Volume 8.3 fL (7.4-10.4); Platelet Count 284 thou/uL (130-400); RBC Distribution Width 11.9 % (11.5-14.5); Red Blood Cell (RBC) Count 3.75 mill/uL (4.20-5.40); White Blood Cell (WBC) Count 13.8 thou/uL (4.8-10.8)
[2018-03-22] MEDS: Haloperidol Lactate 5 MG/ML VIAL IM SCH (09:20)
[2018-03-22] MEDS: Famotidine 20 MG TAB PO SCH ×2 (09:20→20:00)
[2018-03-22 09:21] LABS: Anion Gap 11 mmol/L (10-20); BUN (Urea Nitrogen) Less than 4 mg/dL (7.0-18.7); CK (CPK) 619 U/L (29-168); Calc. Creatinine Clearance 184 mL/min (70-130); Calcium 8.5 mg/dL (7.8-10.44); Carbon Dioxide 27 mmol/L (22-29); Chloride 105 mmol/L (98-107); Estimated GFR-MDRD Greater than 90; Glucose 146 mg/dL (70-105); Magnesium 1.6 mg/dL (1.6-2.6); Phosphorus 2.9 mg/dL (2.3-4.7); Sodium 140 mmol/L (136-145)
[2018-03-22] MEDS: Enoxaparin Sodium 40 MG/0.4 ML SYRINGE SC SCH (09:21)
[2018-03-22 09:25] LABS: Potassium 2.7 mmol/L (3.5-5.1)
[2018-03-22] MEDS ORDERED: Potassium Chloride 20 MEQ TAB PO SCH (09:30)
--- NOTE | 2018-03-22 09:48 | PRG ---
DATE OF SERVICE: 03/22/2018 Johanna Thompson has remained afebrile. Vital signs are stable. She is not hypertensive. She is not tachycardic. She has had no fever. She is still mildly hyperchloremic. This should correct spontaneously with time. We will stop the r outine Haldol. She needs an MHMR evaluation. Opiates in my opinion should be avoided in her given her history of drug abuse and depression. I wou ld treat any pain complaints with Tylenol or anti-inflammatories. She is medically stable in my opin ion for an MHMR evaluation. I would also avoid sleeping pills in her.
--- NOTE | 2018-03-22 10:17 | PDOC.PN ---
- Subjective Encounter Start Date: 03/22/18 Encounter Start Time: 08:50 Patient seen and examined. No new complaints. No overnight events - Objective Resuscitation Status: Resuscitation Status FULL:Full Resuscitation MAR Reviewed: Yes Vital Signs & Weight: Vital Signs (12 hours) Temp Pulse Resp BP BP Pulse Ox 03/22/18 08:10 98.2 F 88 16 103/58 L 95 03/22/18 04:16 98.5 F 98 16 114/59 L 92 L 03/22/18 02:57 93 L 03/22/18 00:00 98.4 F 80 16 107/52 L 93 L Weight Admit Weight 215 lb Weight 215 lb 6.266 oz Most Recent Monitor Data Heart Rate from ECG 90 NIBP 130/81 NIBP BP-Mean 97 Respiration from ECG 16 SpO2 99 I&O: 03/21/18 03/22/18 03/23/18 06:59 06:59 06:59 Intake Total 4413 1500 1750 Output Total 4755 700 Balance -237 988 3727 Result Diagrams: 03/22/18 08:49 03/22/18 08:49 Phys Exam - Physical Examination Constitutional: NAD HEENT: PERRLA, moist MMs, sclera anicteric Neck: no JVD, supple Respiratory: no wheezing, no rales, no rhonchi Cardiovascular: RRR, no significant murmur, no rub Gastrointestinal: soft, non-tender, no distention, positive bowel sounds Musculoskeletal: no edema, pulses present Neurological: non-focal, normal sensation, moves all 4 limbs Psychiatric: normal affect, A&O x 3 Skin: no rash, normal turgor Dx/Plan (1) Acute respiratory failure with hypoxia Code(s): J96.01 - ACUTE RESPIRATORY FAILURE WITH HYPOXIA Status: Resolved (2) Hypokalemia Code(s): E87.6 - HYPOKALEMIA Status: Acute (3) Leucocytosis Code(s): D72.829 - ELEVATED WHITE BLOOD CELL COUNT, UNSPECIFIED Status: Acute (4) Polysubstance abuse Code(s): F19.10 - OTHER PSYCHOACTIVE SUBSTANCE ABUSE, UNCOMPLICATED Status: Acute (5) Rhabdomyolysis Code(s): M62.82 - RHABDOMYOLYSIS Status: Acute (6) Toxic metabolic encephalopathy Code(s): G92 - TOXIC ENCEPHALOPATHY Status: Acute (7) Obesity (BMI 30.0-34.9) Code(s): E66.9 - OBESITY, UNSPECIFIED Status: Chronic - Plan cont current plan of care, 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 Review of Systems - Review of Systems ENT: negative: Ear Pain, Ear Discharge, Nose Pain, Nose Discharge, Nose Congestion, Mouth Pain, Mouth Swelling, Throat Pain, Throat Swelling, Other Respiratory: negative: Cough, Dry, Shortness of Breath, Hemoptysis, SOB with Excertion, Pleuritic Pain, Sputum, Wheezing Cardiovascular: negative: chest pain, palpitations, orthopnea, paroxysmal nocturnal dyspnea, edema, light headedness, other Gastrointestinal: negative: Nausea, Vomiting, Abdominal Pain, Diarrhea, Constipation, Melena, Hematochezia, Other Genitourinary: negative: Dysuria, Frequency, Incontinence, Hematuria, Retention , Other Musculoskeletal: negative: Neck Pain, Shoulder Pain, Arm Pain, Back Pain, Hand Pain, Leg Pain, Foot Pain, Other - Medications/Allergies Allergies/Adverse Reactions: Allergies Allergy/AdvReac Type Severity Reaction Status Date / Time No Known Allergies Allergy Verified 03/07/13 16:05 Medications: Current Medications Acetaminophen (Tylenol) 650 mg [place] Q4H PRN PRN Reason: Headache/Fever or Pain Acetaminophen (Tylenol) 650 mg PO Q4H PRN PRN Reason: Headache/Fever or Mild Pain Hydrocodone Bitart/Acetaminophen ([place] 5/325) 1 tab PO Q4H PRN PRN Reason: Moderate Pain (4-6) Last Admin: 03/21/18 21:02 Dose: 1 tab Al Hydroxide/Mg Hydroxide (Maalox) 15 ml PO Q4H PRN PRN Reason: Heartburn or Indigestion Artificial Tears (Tears Naturale) 0 drop EA EYE PRN PRN PRN Reason: Dry Eyes Bisacodyl (Dulcolax) 10 mg [place] DAILYPRN PRN PRN Reason: Constipation Enoxaparin Sodium (Lovenox) 40 mg SC 0900 [facility] Last Admin: 03/22/18 09:21 Dose: 40 mg Famotidine (Pepcid) 20 mg PO BID [facility] Last Admin: 03/22/18 09:20 Dose: 20 mg Guaifenesin (Robitussin Sf) 200 mg PO Q4H PRN PRN Reason: Cough Hydralazine HCl (Apresoline) 10 mg SLOW IVP Q4H PRN PRN Reason: Systolic BP > 180 Dextrose/Water (D5w) 1,000 mls @ 75 mls/hr IV .[id number] [facility] Last Admin: 03/22/18 04:15 Dose: 1,000 mls Loperamide HCl (Imodium) 2 mg PO PRN PRN PRN Reason: Diarrhea/Loose Stools Loratadine (Claritin) 10 mg PO DAILYPRN PRN PRN Reason: Sinus Symptoms Lorazepam (Ativan) 1 mg PO Q4H PRN PRN Reason: Anxiety/Agitation Last Admin: 03/22/18 05:29 Dose: 1 mg Magnesium Hydroxide (Milk Of Magnesium) 30 ml PO DAILYPRN PRN PRN Reason: Constipation Mineral Oil/White Petrolatum (Eucerin Cream) 0 gm TOP BIDPRN PRN PRN Reason: Dry Skin Morphine Sulfate (Morphine) 2 mg SLOW IVP Q1H PRN PRN Reason: BREAKTHROUGH PAIN/AGITATION Discontinue Previous Narcotic Pain Medications And Benzodiazepines 1 each FS .ONE [facility] Stop: 04/18/18 00:46 Ondansetron HCl (Zofran) 4 mg IVP Q6H PRN PRN Reason: Nausea/Vomiting Ondansetron HCl (Zofran Odt) 4 mg PO Q6H PRN PRN Reason: Nausea/Vomiting Phenol (Chloraseptic [place] 180 Ml Bot) 0 ml PO PRN PRN PRN Reason: Sore Throat Potassium Chloride (K-Dur) 40 meq PO BID[facility] Potassium Chloride (K-Dur) 40 meq PO NOW [facility] Stop: 03/22/18 11:30 Last Admin: 03/22/18 09:40 Dose: 40 meq Senna (Senokot) 2 tab PO HSPRN PRN PRN Reason: Constipation Sodium Chloride (Flush - Normal Saline) 10 ml IVF Q12HR [facility] Last Admin: 03/22/18 09:21 Dose: 10 ml Sodium Chloride (Flush - Normal Saline) 10 ml IVF PRN PRN PRN Reason: Saline Flush Sodium Chloride ([place] Nasal [place] 0.65%) 0 ml EA NARE QIDPRN PRN PRN Reason: Nasal Congestion
[2018-03-22] MEDS: Potassium Chloride 20 MEQ TAB PO SCH (17:12)
[2018-03-22] MEDS: Diabetic Tussin 200 MG/10 ML UDCUP PO PRN (19:56)
[2018-03-22] MEDS: Nicotine 21 MG PATCH TOP SCH (19:56)
[2018-03-22] MEDS: Loratadine 10 MG TAB PO PRN (19:56)
[2018-03-23] MEDS: Diabetic Tussin 200 MG/10 ML UDCUP PO PRN ×3 (05:42→19:47)
[2018-03-23] MEDS: Lorazepam 1 MG TAB PO PRN ×3 (05:42→19:47)
[2018-03-23] MEDS: Dextrose 5% in Water 1,000 ML IV SCH ×3 (05:43→14:38)
[2018-03-23] MEDS: Potassium Chloride 20 MEQ TAB PO SCH ×3 (08:53→17:00)
[2018-03-23] MEDS: Famotidine 20 MG TAB PO SCH ×2 (08:54→19:47)
[2018-03-23] MEDS: Enoxaparin Sodium 40 MG/0.4 ML SYRINGE SC SCH (08:58)
--- NOTE | 2018-03-23 15:15 | PDOC.PN ---
- Subjective Encounter Start Date: 03/23/18 Encounter Start Time: 15:00 Subjective: f/u for methamphetamine OD with encephalopathy and ? SI. Pt denies -: SI but states she was upset with other family members while on meth. -: Mentally clearer today. No SI, intent - Objective Resuscitation Status: Resuscitation Status FULL:Full Resuscitation MAR Reviewed: Yes Vital Signs & Weight: Vital Signs (12 hours) Temp Pulse Resp BP Pulse Ox 03/23/18 07:15 98.3 F 91 16 141/83 H 95 Weight Admit Weight 215 lb Weight 215 lb 6.266 oz Most Recent Monitor Data Heart Rate from ECG 90 NIBP 130/81 NIBP BP-Mean 97 Respiration from ECG 16 SpO2 99 I&O: 03/22/18 03/23/18 03/24/18 06:59 06:59 06:59 Intake Total 1500 3830 Output Total 700 Balance 800 3830 Result Diagrams: 03/22/18 08:49 03/22/18 08:49 Additional Labs: Laboratory Tests 03/18/18 03/18/18 03/20/18 21:50 21:51 05:57 Potassium 3.0 L Creatine Kinase 467 H Ur Amphetamines Screen Detected H U Methamphetamines Scrn Detected H U Benzodiazepines Scrn Detected H 03/21/18 03/22/18 08:16 08:49 Potassium 2.8 L* Creatine Kinase 619 H Ur Amphetamines Screen U Methamphetamines Scrn U Benzodiazepines Scrn Phys Exam - Physical Examination tearful, responds to questions, alert HEENT: PERRLA, sclera anicteric, oral pharynx no lesions Neck: no nodes, no JVD, supple, full ROM Respiratory: no wheezing, no rales, no rhonchi, clear to auscultation bilateral S1, S2 Cardiovascular: RRR, no significant murmur, no rub, gallop Gastrointestinal: soft, non-tender, no distention, positive bowel sounds Musculoskeletal: no edema, pulses present Neurological: non-focal, normal sensation, moves all 4 limbs Psychiatric: A&O x 3 Skin: no rash, normal turgor, cap refill <2 seconds Dx/Plan (1) Toxic metabolic encephalopathy Code(s): G92 - TOXIC ENCEPHALOPATHY Status: Acute Comment: Resolved, secondary to meth abuse (2) Polysubstance abuse Code(s): F19.10 - OTHER PSYCHOACTIVE SUBSTANCE ABUSE, UNCOMPLICATED Status: Acute Comment: Episodic abuse, [facility] evaluating and likely will need ongoing outpt follow up (3) Hypokalemia Code(s): E87.6 - HYPOKALEMIA Status: Acute Comment: Increase KCL 40meq TID, repeat K+ level in am (4) Leucocytosis Code(s): D72.829 - ELEVATED WHITE BLOOD CELL COUNT, UNSPECIFIED Status: Acute Comment: Mild, likely multifactorial, no evidence of acute infectious process (5) Rhabdomyolysis Code(s): M62.82 - RHABDOMYOLYSIS Status: Acute Comment: Mild, encourage free -H2O intake, saline lock IVF - Plan social services counselor Stable overall -: Saline lock IVF -: Increase KCL 40meq TID -: [facility] re-evaluation for potential home discharge/safety plan -: AM lab: BMP * .
[2018-03-23] MEDS: Nicotine 21 MG PATCH TOP SCH (19:47)
[2018-03-23 23:41] VITALS: BP 122/78; TEMP 98.6
[2018-03-24] MEDS ORDERED: Melatonin 3 MG TAB PO SCH (00:15)
[2018-03-24] MEDS: Loratadine 10 MG TAB PO PRN (04:35)
[2018-03-24] MEDS: Diabetic Tussin 200 MG/10 ML UDCUP PO PRN ×2 (04:36→08:15)
[2018-03-24 07:50] LABS: Calcium 9.6 mg/dL (7.8-10.44); Chloride 102 mmol/L (98-107); Glucose 87 mg/dL (70-105); Potassium 3.9 mmol/L (3.5-5.1); Sodium 138 mmol/L (136-145)
[2018-03-24 07:52] LABS: Anion Gap 12 mmol/L (10-20); Carbon Dioxide 28 mmol/L (22-29)
[2018-03-24 07:54] LABS: Calc. Creatinine Clearance 204 mL/min (70-130); Estimated GFR-MDRD Greater than 90
[2018-03-24 07:55] LABS: BUN (Urea Nitrogen) 5 mg/dL (7.0-18.7)
[2018-03-24] MEDS: Potassium Chloride 20 MEQ TAB PO SCH ×3 (08:14→11:37)
[2018-03-24] MEDS: Famotidine 20 MG TAB PO SCH (08:14)
[2018-03-24] MEDS: Lorazepam 1 MG TAB PO PRN (08:15)
--- NOTE | 2018-03-24 13:41 | DIS ---
DATE OF ADMISSION: 03/08/2018 DATE OF DISCHARGE: 03/24/2018 DISCHARGE DIAGNOSES: 1. Toxic metabolic encephalopathy secondary to drug overdose with methamphetamines. 2. Polysubstance abuse with methamphetamines. 3. Hypokalemia, resolved. 4. Leukocytosis secondary to stress reaction and demargination, improved. 5. Rhabdomyolysis, mild. 6. Bipolar disorder. CONSULTATIONS: Dr. Warren with Pulmonology Service. [facility] Services. PERTINENT LAB AND X-RAY FINDINGS: Potassium ranged between 2.7-3.9, phosphorus 2.9, magnesium level 1.6, total CK ranged between 467-619. TSH 0.69. Serum beta hCG negative on 03/18/2018. CBC showed a white blood cell count ranging between 13.5-19.8, hemoglobin ranged between 11.2-13.5. Urine drug screen dated on 03/18/2018, positive for amphetamines, methamphetamines, and benzodiazepines. Plasma alcohol level less than 10. CT of the cervical spine dated on 03/18/2018, showed no acute fracture or dislocation. CT of the brain without contrast dated 03/18/2018, showed no acute intracranial proc ess. Portable chest x-ray dated 03/18/2018, showed endotracheal tube overlying the irma. No acute process identified. HOSPITAL COURSE: The patient was initially admitted to the critical care unit after presenting with severe agitation in the context of methamphetamine abuse and ingestion. Due to patient's combativene ss and agitation, the patient was given sedation and needed airway protection with intubation and mec hanical ventilation, managed initially in the critical care unit. The patient clinically stabilized at approximately 24-48 hours and was extubated successfully. The patient transferred to the medical floor where she remained clinically stable. The patient was evaluated by the [facility] Service initially with recommendations to consider inpatient psychiatric placement. Due to bed unavailability, the pat ient was monitored on the medical floor, stabilizing with general supportive measures. The patient w as reevaluated by [facility] Services on 03/23/2018, and deemed appropriate for discharge home with outpati ent [facility] followup to address underlying psychiatric issues as well as counseling regarding methamphet amines abuse. Family and patient were given information and resources regarding follow up at which t thea verbalized understanding and agreement. I have examined the patient at the time of discharge discussing followup instructions. The patient v erbalizes understanding and agreement ready for discharge on 03/24/2018. DISCHARGE MEDICATIONS: 1. BuSpar 15 mg p.o. b.i.d. 2. Lamictal 100 mg p.o. at bedtime. 3. Prazosin 1 mg p.o. at bedtime. 4. Seroquel 200 mg p.o. b.i.d. FOLLOWUP: The patient will follow up with [facility] Services in [place], [place] within 2-3 days after disch arge. CONDITION ON DISCHARGE: Stable. ACTIVITY: ad jimmy. DIET: Regular. CODE STATUS: FULL. DISPOSITION: Home with family on 03/24/2018. Total time preparing in coordinating discharge was 32 minutes.
== END 2018-03-24 12:43 | disposition home or self-care (01) | DRG 917 ==
LOC: ERS 21:27 → CCU 23:36 → T4-B 03-21 14:38
PROVIDERS: ADMIT Hospitalist; ATTEND Hospitalist
PROC: 5A1945Z Respiratory Ventilation, 24-96 Consecutive Hours (ICD-10-PCS; principal; 2018-03-18)
DX: T43.621A Poisoning by amphetamines, accidental (unintentional), initial encounter (principal); J96.01 Acute respiratory failure with hypoxia; G92 Toxic encephalopathy; M62.82 Rhabdomyolysis; Y92.9 Unspecified place or not applicable; F43.10 Post-traumatic stress disorder, unspecified; D72.829 Elevated white blood cell count, unspecified; F31.9 Bipolar disorder, unspecified; F17.210 Nicotine dependence, cigarettes, uncomplicated; E87.6 Hypokalemia; E66.9 Obesity, unspecified; Z68.32 Body mass index [BMI] 32.0-32.9, adult; E16.2 Hypoglycemia, unspecified
CPT/HCPCS: 31500; 36415; 36416; 51702; 70450; 71045; 72125; 80048; 80053; 80306; 80307; 81003; 82550; 82553; 82805; 83735; 84100; 84132; 84443; 84484; 84703; 85025; 93005; 94002; 94003; 96365; 96366; 96375; 96376; A4216; J1630; J1650; J2060; J2250; J2704; J3010; J3480; J7050; S0028

== ENCOUNTER 2018-03-31 20:43 | Emergency (ER) | payer SELFPAY ==
[2018-03-31] MEDS ORDERED: diphenhydrAMINE 50 MG CAP ONE (21:11)
[2018-03-31] MEDS ORDERED: Lorazepam 2 MG/ML VIAL ONE (21:11)
== END 2018-03-31 22:13 | disposition home or self-care (01) ==
LOC: ERS 20:43
DX: F41.9 Anxiety disorder, unspecified (principal); F17.210 Nicotine dependence, cigarettes, uncomplicated
CPT/HCPCS: 96372; J2060

== ENCOUNTER 2025-02-09 19:15 | Inpatient (IN) | payer BC, SELFPAY ==
[2025-02-09 20:00] LABS: #Basophils 0.10 10x3/uL (0.0-0.2); #Eosinophils 0.27 10x3/uL (0.0-0.7); #Monocytes 0.78 10x3/uL (0.11-0.59); #Neutrophils 9.70 10x3/uL (1.40-6.50); %Basophils 0.7 % (0.0-1.0); %Eosinophils 2.0 % (0.0-10.0); %Lymphocytes 21.3 % (21.0-51.0); %Monocytes 5.6 % (0.0-10.0); %Neutrophils 70.1 % (42.0-75.0); Hematocrit 39.9 % (36.0-47.0); Hemoglobin 13.1 g/dL (12.0-16.0); Mean Corpuscular Hemoglobin 29.8 pg (27.0-31.0); Mean Corpuscular Volume 90.7 fL (78.0-98.0); Platelet Count 332 10x3/uL (130-400); Red Blood Cell (RBC) Count 4.40 mill/uL (4.20-5.40); White Blood Cell (WBC) Count 13.83 10x3/uL (4.8-10.8)
[2025-02-09 20:15] LABS: ALT (SGPT) 31 U/L (Less than 34); AST (SGOT) 32 U/L (11-34); Albumin 4.2 g/dL (3.1-4.5); Alkaline Phosphatase 93 U/L (40-110); Anion Gap 13 mmol/L (10-20); BUN (Urea Nitrogen) 7 mg/dL (7.0-18.7); Bilirubin, Total 0.3 mg/dL (0.3-1.2); Calc. Creatinine Clearance 0 mL/min (70-130); Calcium 9.4 mg/dL (7.8-10.44); Carbon Dioxide 25 mmol/L (22-29); Chloride 106 mmol/L (98-107); Globulin 3.2 g/dL (2.4-3.5); Glucose 84 mg/dL (70-105); Lipase 19 U/L (8-78); Potassium 3.6 mmol/L (3.5-5.1); Sodium 140 mmol/L (136-145)
[2025-02-09 20:18] LABS: BHCG - Serum Negative (NEGATIVE); Pregs Control Background? CLEAR/WHITE (CLR/WHITE); Pregs Control Bar Appear? YES (CONTROL BAR)
[2025-02-09] MEDS ORDERED: Ondansetron PF 4 MG/2 ML Vial ONE (20:58)
[2025-02-09] MEDS ORDERED: Ketorolac Tromethamine 30 MG (1 mL) VIAL ONE (20:58)
[2025-02-10] MEDS ORDERED: hydrALAZINE 20 MG/ML VIAL SLOW IVP PRN (01:09)
[2025-02-10 02:32] VITALS: BMI 40.7
[2025-02-10] MEDS: Ondansetron PF 4 MG/2 ML Vial IVP PRN (04:07)
[2025-02-10 05:38] LABS: #Basophils 0.05 10x3/uL (0.0-0.2); #Eosinophils 0.22 10x3/uL (0.0-0.7); #Monocytes 0.61 10x3/uL (0.11-0.59); #Neutrophils 6.53 10x3/uL (1.40-6.50); %Basophils 0.5 % (0.0-1.0); %Eosinophils 2.3 % (0.0-10.0); %Lymphocytes 22.7 % (21.0-51.0); %Monocytes 6.3 % (0.0-10.0); %Neutrophils 68.0 % (42.0-75.0); Hematocrit 38.4 % (36.0-47.0); Hemoglobin 12.5 g/dL (12.0-16.0); Mean Corpuscular Hemoglobin 29.9 pg (27.0-31.0); Mean Corpuscular Volume 91.9 fL (78.0-98.0); Platelet Count 296 10x3/uL (130-400); Red Blood Cell (RBC) Count 4.18 mill/uL (4.20-5.40); White Blood Cell (WBC) Count 9.61 10x3/uL (4.8-10.8)
[2025-02-10 06:11] LABS: ALT (SGPT) 31 U/L (Less than 34); AST (SGOT) 27 U/L (11-34); Albumin 3.8 g/dL (3.1-4.5); Alkaline Phosphatase 84 U/L (40-110); Anion Gap 10 mmol/L (10-20); BUN (Urea Nitrogen) 8 mg/dL (7.0-18.7); Bilirubin, Total 0.5 mg/dL (0.3-1.2); Calc. Creatinine Clearance 194 mL/min (70-130); Calcium 8.7 mg/dL (7.8-10.44); Carbon Dioxide 24 mmol/L (22-29); Chloride 110 mmol/L (98-107); Globulin 2.9 g/dL (2.4-3.5); Glucose 91 mg/dL (70-105); Potassium 3.6 mmol/L (3.5-5.1); Sodium 140 mmol/L (136-145)
[2025-02-10] MEDS: Famotidine 20 MG TAB PO SCH (14:57)
[2025-02-10] MEDS: Acetaminophen 325 MG TAB PO PRN (14:57)
[2025-02-11 05:19] LABS: #Basophils 0.06 10x3/uL (0.0-0.2); #Eosinophils 0.23 10x3/uL (0.0-0.7); #Monocytes 0.69 10x3/uL (0.11-0.59); #Neutrophils 7.16 10x3/uL (1.40-6.50); %Basophils 0.6 % (0.0-1.0); %Eosinophils 2.2 % (0.0-10.0); %Lymphocytes 23.1 % (21.0-51.0); %Monocytes 6.5 % (0.0-10.0); %Neutrophils 67.3 % (42.0-75.0); Hematocrit 40.3 % (36.0-47.0); Hemoglobin 13.0 g/dL (12.0-16.0); Mean Corpuscular Hemoglobin 29.8 pg (27.0-31.0); Mean Corpuscular Volume 92.4 fL (78.0-98.0); Platelet Count 296 10x3/uL (130-400); Red Blood Cell (RBC) Count 4.36 mill/uL (4.20-5.40); White Blood Cell (WBC) Count 10.63 10x3/uL (4.8-10.8)
[2025-02-11 05:57] LABS: ALT (SGPT) 29 U/L (Less than 34); AST (SGOT) 27 U/L (11-34); Albumin 3.7 g/dL (3.1-4.5); Alkaline Phosphatase 83 U/L (40-110); Anion Gap 14 mmol/L (10-20); BUN (Urea Nitrogen) 5 mg/dL (7.0-18.7); Bilirubin, Total 0.5 mg/dL (0.3-1.2); Calc. Creatinine Clearance 184 mL/min (70-130); Calcium 8.9 mg/dL (7.8-10.44); Carbon Dioxide 21 mmol/L (22-29); Chloride 111 mmol/L (98-107); Globulin 2.9 g/dL (2.4-3.5); Glucose 83 mg/dL (70-105); Potassium 4.3 mmol/L (3.5-5.1); Sodium 142 mmol/L (136-145)
[2025-02-11] MEDS ORDERED: Bupivacaine 0.25% HCL 30 ML VIAL ONE (07:28)
[2025-02-11] MEDS ORDERED: Ondansetron PF 4 MG/2 ML Vial ONE (07:41)
[2025-02-11] MEDS ORDERED: fentaNYL PF 100 MCG/2 ML SYRINGE ONE (07:41)
[2025-02-11] MEDS ORDERED: Lidocaine 1% PF 5 ML VIAL ONE (07:41)
[2025-02-11] MEDS ORDERED: PROPOFOL 40 ML ONE (07:41)
[2025-02-11] MEDS ORDERED: Rocuronium Bromide 10 MG/ML (10ML VIAL) ONE (07:41)
[2025-02-11] MEDS ORDERED: Glycopyrrolate 0.2 MG/ML 5 ML SYRINGE ONE (08:49)
[2025-02-11] MEDS ORDERED: PHENYLEPHRINE-NS 100 MCG/ML 10 ML SYRINGE ONE (08:50)
[2025-02-11] MEDS ORDERED: SUGAMMADEX SODIUM 200 MG/2 ML VIAL ONE ×2 (09:18→09:45)
[2025-02-11 14:07] VITALS: BP 137/87; TEMP 98
== END 2025-02-11 14:13 | disposition home or self-care (01) | DRG 419 ==
LOC: ERS 19:15 → T4-B 02-10 01:09
PROVIDERS: ADMIT Surgery; ATTEND Surgery
PROC: 0FT44ZZ Resection of Gallbladder, Percutaneous Endoscopic Approach (ICD-10-PCS; principal; 2025-02-10)
DX: K81.0 Acute cholecystitis (principal); F41.9 Anxiety disorder, unspecified; F31.9 Bipolar disorder, unspecified; K81.1 Chronic cholecystitis; F43.10 Post-traumatic stress disorder, unspecified; Z87.891 Personal history of nicotine dependence; Z91.012 Allergy to eggs; Z88.6 Allergy status to analgesic agent; Z98.890 Other specified postprocedural states
CPT/HCPCS: 36415; 76705; 78226; 80053; 83690; 84703; 85025; 88304; 96365; 96375; A9537; C1889; J0169; J0665; J1100; J1885; J2250; J2270; J2405; J2543; J2550; J2704; J3010; J7030; S2900